=== PATIENT | female | born 1965 ===

== ENCOUNTER 2018-09-10 15:08 | Inpatient (IN) | payer OTHER ==
[2018-09-10 16:33] VITALS: BMI 28.0
[2018-09-10 17:41] LABS: BASO # 0.1 K/uL (0.0-0.2); BASO % 0.6 % (0.0-2.0); EOS % 0.1 % (0.0-4.0); HEMOGLOBIN 12.9 g/dL (12.0-16.0); LYMPH # 0.9 K/uL (1.0-4.3); LYMPH % 7.1 % (20.0-40.0); MEAN CELL VOLUME 90.3 fl (81.0-99.0); MEAN CORPUSCULAR HEMOGLOBIN 30.6 pg (27.0-31.0); MEAN CORPUSCULAR HGB CONC 33.9 g/dL (33.0-37.0); MEAN PLATELET VOLUME 8.5 fl (7.2-11.7); MONO % 7.8 % (0.0-10.0); NEUT # 10.7 K/uL (1.8-7.0); NEUT % 84.4 % (50.0-75.0); NRBC % 0.1 % (0.0-0.0); PLATELET COUNT 175 K/uL (130-400); RBC 4.22 Mil/uL (3.80-5.20); RED CELL DISTRIBUTION WIDTH 13.4 % (11.5-14.5); WHITE BLOOD COUNT 12.7 K/uL (4.8-10.8)
[2018-09-10 17:45] LABS: INR 1.1; PROTHROMBIN TIME 12.2 Seconds (9.8-13.1)
--- NOTE | 2018-09-10 17:45 | ED PDOC ---
HPI: Abdomen Time Seen by Provider: 09/10/18 16:43 Chief Complaint (Nursing): Abdominal Pain Chief Complaint (Provider): Abdominal pain History Per: Patient History/Exam Limitations: no limitations Onset/Duration Of Symptoms: Days Outside of [place] travel?: No Current Symptoms Are (Timing): Still Present Location Of Pain/Discomfort: Epigastric Quality Of Discomfort: "Pain" Additional History Per: Patient Additional Complaint(s): Patient comes in to ER reporting worsening epigastric abdominal pain x 3 days. She has been taking omeprazole with no relief of symptoms. Patient also reports subjective fevers, chills, and bodyaches. She has been taking over the counter cough/cold medication with no relief of symptoms. Patient was evaluated by her PMD who informed her to come to the ER. She denies any vomiting, diarrhea, no other complaints. Past Medical History Reviewed: Historical Data, Nursing Documentation, Vital Signs Vital Signs: Last Vital Signs Temp 99.8 F H 09/10/18 16:33 Pulse 91 H 09/10/18 16:33 Resp 16 09/10/18 16:33 BP 120/72 09/10/18 16:33 Pulse Ox 98 09/10/18 16:33 Primary Care Provider: Mio Hassan - Medical History PMH: HTN Denies: Chronic Kidney Disease - Surgical History Surgical History: No Surg Hx - Family History Family History: States: No Known Family Hx - Home Medications Home Medications: Ambulatory Orders Medication Instructions Recorded Aspirin [Ecotrin] 81 mg PO DAILY 12/14/15 Ibuprofen [Motrin Tab] 800 mg PO Q8 PRN 12/14/15 Lisinopril/Hydrochlorothiazide 1 tab PO DAILY 12/14/15 [Lisinopril-Hctz 20-25 mg Tab] Multivitamin [One Daily] 1 tab PO DAILY 12/14/15 - Allergies Allergies/Adverse Reactions: Allergies Allergy/AdvReac Type Severity Reaction Status Date / Time No Known Allergies Allergy Verified 09/10/18 16:33 Review of Systems ROS Statement: Except As Marked, All Systems Reviewed And Found Negative Constitutional: Positive for: Weakness, Malaise. Negative for: Fever, Chills Gastrointestinal: Positive for: Abdominal Pain. Negative for: Vomiting Physical Exam - Reviewed Nursing Documentation Reviewed: Yes Vital Signs Reviewed: Yes - Physical Exam Appears: Positive for: Non-toxic (appears ) Head Exam: Positive for: ATRAUMATIC, NORMAL INSPECTION, NORMOCEPHALIC Skin: Positive for: Normal Color Eye Exam: Positive for: Normal appearance Neck: Positive for: Supple Cardiovascular/Chest: Positive for: Regular Rate, Rhythm Respiratory: Positive for: Normal Breath Sounds Gastrointestinal/Abdominal: Positive for: Soft, Tenderness (epigastric) Back: Positive for: Normal Inspection Extremity: Positive for: Normal ROM Neurological/Psych: Positive for: Awake, Alert - Laboratory Results Result Diagrams: 09/12/18 07:00 09/12/18 07:00 - ECG O2 Sat by Pulse Oximetry: 98 (RA) Pulse Ox Interpretation: Normal Medical Decision Making Medical Decision Making: Workup for epigastric pain Labs, GI cocktail ordered If labs are abnormal or patient does not have improvement in symptoms, CT AP to be ordered. 1909 On reassessment, patient noted to be doubled over with pain CT A/P ordered w/ IV Contrast Patient does not want narcotics for pain, will give tylenol and additional GI cocktail Patient signed out to Dr. Ocampo pending CT, reassessment, ER dispo. Scribe Attestation: Documented by Yovaan Melgar acting as a scribe for Shanta Altamirano MD. Provider Scribe Attestation: All medical record entries made by the Scribe were at my direction and personally dictated by me. I have reviewed the chart and agree that the record accurately reflects my personal performance of the history, physical exam, medical decision making, and the department course for this patient. I have also personally directed, reviewed, and agree with the discharge instructions and disposition. Disposition - Clinical Impression Clinical Impression: Cholecystitis, Cholelithiasis - Patient ED Disposition Is Patient to be Admitted: Transfer of Care - Disposition Disposition: Transfer of Care Disposition Time: 19:00 Condition: STABLE Patient Signed Over To: Tim Ocampo
[2018-09-10 17:48] LABS: PARTIAL THROMBOPLASTIN TIME 37.1 Seconds (25.6-37.1)
[2018-09-10 17:49] LABS: ALB/GLOB RATIO 1.3 (1.0-2.1); ALBUMIN 4.2 g/dL (3.5-5.0); ALT/SGPT 50 U/L (9-52); AST/SGOT 35 U/L (14-36); BLOOD UREA NITROGEN 9 mg/dl (7-17); CALCIUM 8.8 mg/dL (8.4-10.2); GFR NON-AFRICAN AMERICAN > 60
[2018-09-10 18:03] LABS: VENOUS BLOOD GAS BASE EXCESS 5.3 mmol/L (0.0-2.0); VENOUS BLOOD GAS PCO2 46 mmHg (40-60); VENOUS BLOOD GAS PO2 24 mm/Hg (30-55); VENOUS BLOOD PH 7.43 (7.32-7.43)
[2018-09-10] MEDS ORDERED: Iohexol 300 100 ML IJ ONE (19:47)
[2018-09-10] MEDS ORDERED: Sodium Chloride 0.9% 50 ML IV ONE (19:47)
--- NOTE | 2018-09-10 19:49 | ED PDOC ---
- Laboratory Results Result Diagrams: 09/11/18 05:26 09/11/18 05:26 Lab Results: pO2 24 mm/Hg (30-55) L 09/10/18 17:55 VBG pH 7.43 (7.32-7.43) 09/10/18 17:55 VBG pCO2 46 mmHg (40-60) 09/10/18 17:55 VBG HCO3 27.6 mmol/L 09/10/18 17:55 VBG Total CO2 31.9 mmol/L (22-28) H 09/10/18 17:55 VBG O2 Sat (Calc) 52.3 % (40-65) 09/10/18 17:55 VBG Base Excess 5.3 mmol/L (0.0-2.0) H 09/10/18 17:55 VBG Potassium 3.4 mmol/L (3.6-5.2) L 09/10/18 17:55 Sodium 135.0 mmol/L (132-148) 09/10/18 17:55 Chloride 99.0 mmol/L (98-107) 09/10/18 17:55 Glucose 102 mg/dL (65-105) 09/10/18 17:55 Lactate 1.2 mmol/L (0.7-2.1) 09/10/18 17:55 FiO2 21.0 % 09/10/18 17:55 PT 12.2 Seconds (9.8-13.1) 09/10/18 17:00 INR 1.1 09/10/18 17:00 APTT 37.1 Seconds (25.6-37.1) 09/10/18 17:00 Troponin I < 0.0120 ng/mL (0.00-0.120) 09/10/18 17:00 Total Bilirubin 0.9 mg/dl (0.2-1.3) 09/10/18 17:00 AST 35 U/L (14-36) 09/10/18 17:00 ALT 50 U/L (9-52) 09/10/18 17:00 Alkaline Phosphatase 80 U/L (38-126) 09/10/18 17:00 Total Protein 7.6 G/DL (6.3-8.2) 09/10/18 17:00 Albumin 4.2 g/dL (3.5-5.0) 09/10/18 17:00 Globulin 3.3 gm/dL (2.2-3.9) 09/10/18 17:00 Albumin/Globulin Ratio 1.3 (1.0-2.1) 09/10/18 17:00 - ECG O2 Sat by Pulse Oximetry: 98 (RA) Pulse Ox Interpretation: Normal Medical Decision Making Medical Decision Makin Patient signed out to me by Dr. Altamirano pending CT A/P 2021 Patient with continued pain, morphine 2mg IV ordered 2149 CT Abdomen/Pelvis FINDINGS: LUNG BASES: The lung bases appear clear. No pleural effusions are seen. LIVER: Unremarkable. GALLBLADDER AND BILE DUCTS: There is mucosal wall thickening of the bladder with pericholecystic edema not ed. A few tiny choleliths are seen within the gallbladder lumen. These findings are thought compatible with acute cholecystitis. No biliary ductal dilatation is evident. PANCREAS: Unremarkable. SPLEEN: Unremarkable. ADRENAL GLANDS: Unremarkable. KIDNEYS, URETERS, AND BLADDER: The kidneys appear within normal limits. There is no hydronephrosis or hydroureter. No urinary calculi are seen. The urinary bladder appeared normal in size and configuration. STOMACH AND BOWEL: Unremarkable appearance of the stomach. No evidence of bowel obstruction. There is mild mucosal wall thickening and fluid in the lumen seen involving all small bowel segments consistent with enteritis. Infectious or inflammatory etiologies are thought most likely. No evidence suggesting colitis. APPENDIX: No evidence of acute appendicitis on CT examination. PERITONEUM: No free fluid. No free air. LYMPH NODES: No lymphadenopathy is evident. REPRODUCTIVE: Unremarkable as visualized. VASCULATURE: No evidence of abdominal aortic aneurysm. There is minor atherosclerotic vascular plaquing noted. BONES: No aggressive appearing osseous lesion. No acute osseous pathology evident. There is evidence of moderate degenerative disc disease at L4-5 and L5-S1. IMPRESSION: 1. Cholelithiasis with associated acute cholecystitis. 2. Enteritis. IV Zosyn ordered Case referred to surgery service; patient evaluated by Dr Malcolm who d/w Dr Tesfaye. Case also d/w Dr Heard who accepted under his svc DX Acute Cholecystitis, Cholelithiasis Scribe Attestation: Documented by Yovana Melgar acting as a scribe for Tim Ocampo MD. Provider Scribe Attestation: All medical record entries made by the Scribe were at my direction and personally dictated by me. I have reviewed the chart and agree that the record accurately reflects my personal performance of the history, physical exam, medical decision making, and the department course for this patient. I have also personally directed, reviewed, and agree with the discharge instructions and disposition. Disposition - Clinical Impression Clinical Impression: Cholecystitis, Cholelithiasis - POA Present On Arrival: None - Disposition Disposition: Routine/Home Disposition Time: 22:00 Condition: STABLE
[2018-09-10 20:32] LABS: BANDS 3 % (0-2); LYMPHOCYTE 13 % (20-50); MONOCYTE 8 % (0-10); NEUTROPHIL 76 % (42-75); TOTAL CELLS COUNTED 100
[2018-09-10 20:33] LABS: ANISOCYTOSIS SLIGHT; HYPOCHROMIC SLIGHT; PLATELET ESTIMATE NORMAL (NORMAL)
[2018-09-10] MEDS ORDERED: Sodium Chloride 0.9% 1,000 ML IV STA (20:45)
[2018-09-10] MEDS ORDERED: Piperacillin/Tazobact 3.375 GM in Sodium Chloride 0.9% 100 ML IV STA (21:54)
--- NOTE | 2018-09-10 22:36 | CP.PCM.CON ---
History of Present Illness - History of Present Illness History of Present Illness: Surgery Consult Note. Dr. Tesfaye service 52yo F with PMHx of HTN and Asthma who comes into the ED with epigastric, RUQ abdominal pain for 3 days. States that the pain is located in the RUQ, does not radiate, described as sharp and severe. Nothing improves the pain. Last time patient ate was yesterday at breakfast. Reports nausea, no emesis. Denies any fevers or chills. No urinary complaints. Denies CP/SOB. CT A/P consistent with c holelithiasis, perichole fluid and distended GB consistent with cholecystitis. PMHx: HTN, Asthma PSHx: Left parotid mass removal Family Hx: Denies Social Hx: Denies tobacco use, Denies ETOH use, Denies illicit drug use NKDA Review of Systems - Review of Systems All systems: reviewed and no additional remarkable complaints except - Constitutional Constitutional: absent: Chills, Fever Past Patient History - Past Medical History & Family History Past Medical History?: Yes Past Family History: Reviewed and not pertinent - Past Social History Smoking Status: Never Smoked Alcohol: None Drugs: Denies - CARDIAC Hx Hypertension: Yes - PULMONARY Hx Respiratory Disorders: No - NEUROLOGICAL Hx Neurological Disorder: No - HEENT Hx HEENT Problems: No - RENAL Hx Chronic Kidney Disease: No - ENDOCRINE/METABOLIC Hx Endocrine Disorders: No - HEMATOLOGICAL/ONCOLOGICAL Hx Blood Disorders: No - INTEGUMENTARY Hx Dermatological Problems: No - MUSCULOSKELETAL/RHEUMATOLOGICAL Hx Musculoskeletal Disorders: No - GASTROINTESTINAL Hx Gastrointestinal Disorders: Yes Hx Gastroesophageal Reflux: Yes - GENITOURINARY/GYNECOLOGICAL Hx Genitourinary Disorders: No - PSYCHIATRIC Hx Emotional Abuse: No Hx Physical Abuse: No Hx Substance Use: No - SURGICAL HISTORY Hx Surgeries: Yes Hx Tubal Ligation: Yes (20YRS AGO) Other/Comment: PAROTID LEFT OCTOBER 2015 - ANESTHESIA Hx Anesthesia: Yes Hx Anesthesia Reactions: No Hx Malignant Hyperthermia: No Meds Allergies/Adverse Reactions: Allergies Allergy/AdvReac Type Severity Reaction Status Date / Time No Known Allergies Allergy Verified 09/10/18 16:33 - Medications Medications: Current Medications Piperacillin Sod/Tazobactam (Sod 3.375 gm/ Sodium Chloride) 100 mls @ 100 mls/hr IV STAT STA; Protocol Stop: 09/10/18 22:53 Physical Exam - Constitutional Appears: Non-toxic, No Acute Distress - Head Exam Head Exam: ATRAUMATIC, NORMAL INSPECTION, NORMOCEPHALIC - Eye Exam Eye Exam: EOMI, Normal appearance. absent: Scleral icterus - ENT Exam ENT Exam: Mucous Membranes Moist - Respiratory Exam Respiratory Exam: NORMAL BREATHING PATTERN. absent: Accessory Muscle Use, Respiratory Distress - Cardiovascular Exam Cardiovascular Exam: RRR. absent: JVD - GI/Abdominal Exam GI & Abdominal Exam: Soft. absent: Distended, Firm, Guarding, Rebound, Rigid Additional comments: RUQ tenderness to palpation. Negative Fischer's sign - Extremities Exam Extremities exam: Positive for: normal inspection. Negative for: calf tenderness - Neurological Exam Neurological exam: Alert, Oriented x3 - Psychiatric Exam Psychiatric exam: Normal Affect, Normal Mood - Skin Skin Exam: Dry, Intact, Normal Color, Warm Results - Vital Signs Recent Vital Signs: Last Vital Signs Temp 99.0 F 09/10/18 20:15 Pulse 77 09/10/18 21:24 Resp 20 09/10/18 21:24 BP 120/66 09/10/18 21:24 Pulse Ox 98 09/10/18 21:54 - Labs Result Diagrams: 09/11/18 05:26 09/11/18 05:26 Labs: Laboratory Results - last 24 hr 09/10/18 09/10/18 09/10/18 17:00 17:00 17:00 WBC 12.7 H D RBC 4.22 Hgb 12.9 Hct 38.1 MCV 90.3 MCH 30.6 MCHC 33.9 RDW 13.4 Plt Count 175 MPV 8.5 Neut % (Auto) 84.4 H Lymph % (Auto) 7.1 L [place] % (Auto) 7.8 Eos % (Auto) 0.1 Baso % (Auto) 0.6 Neut # (Auto) 10.7 H Lymph # (Auto) 0.9 L [place] # (Auto) 1.0 H Eos # (Auto) 0.0 Baso # (Auto) 0.1 Neutrophils % (Manual) 76 H Band Neutrophils % 3 H Lymphocytes % (Manual) 13 L Monocytes % (Manual) 8 Platelet Estimate Normal Hypochromasia (manual) Slight Anisocytosis (manual) Slight PT 12.2 INR 1.1 APTT 37.1 pO2 VBG pH VBG pCO2 VBG HCO3 VBG Total CO2 VBG O2 Sat (Calc) VBG Base Excess VBG Potassium Glucose Lactate FiO2 Sodium 135 Potassium 3.4 L Chloride 97 L Carbon Dioxide 28 Anion Gap 13 BUN 9 Creatinine 0.6 L Est GFR ( Amer) > 60 Est GFR (Non-Af Amer) > 60 Random Glucose 103 Calcium 8.8 Total Bilirubin 0.9 AST 35 ALT 50 Alkaline Phosphatase 80 Troponin I < 0.0120 Total Protein 7.6 Albumin 4.2 Globulin 3.3 Albumin/Globulin Ratio 1.3 Venous Blood Potassium 09/10/18 17:55 WBC RBC Hgb Hct MCV MCH MCHC RDW Plt Count MPV Neut % (Auto) Lymph % (Auto) [place] % (Auto) Eos % (Auto) Baso % (Auto) Neut # (Auto) Lymph # (Auto) [place] # (Auto) Eos # (Auto) Baso # (Auto) Neutrophils % (Manual) Band Neutrophils % Lymphocytes % (Manual) Monocytes % (Manual) Platelet Estimate Hypochromasia (manual) Anisocytosis (manual) PT INR APTT pO2 24 L VBG pH 7.43 VBG pCO2 46 VBG HCO3 27.6 VBG Total CO2 31.9 H VBG O2 Sat (Calc) 52.3 VBG Base Excess 5.3 H VBG Potassium 3.4 L Glucose 102 Lactate 1.2 FiO2 21.0 Sodium 135.0 Potassium Chloride 99.0 Carbon Dioxide Anion Gap BUN Creatinine Est GFR ( Amer) Est GFR (Non-Af Amer) Random Glucose Calcium Total Bilirubin AST ALT Alkaline Phosphatase Troponin I Total Protein Albumin Globulin Albumin/Globulin Ratio Venous Blood Potassium 3.4 L Assessment & Plan - Assessment and Plan (Free Text) Assessment: 52yo F with cholecystitis Plan: - NPO except meds - IV Abx - IVF - antiemetics as needed - pain control - Abd US - Will plan for OR today Further recs as per Dr. Brien Malcolm PGY2 surgery
[2018-09-10] MEDS ORDERED: Piperacillin/Tazobact 3.375 gm Inj IVPB ONE (22:51)
[2018-09-11] MEDS: HYDROmorphone 0.5 mg/0.5 ml ISec IVP PRN ×3 (00:30→08:13)
[2018-09-11] MEDS: Piperacillin/Tazobact 3.375 GM in Sodium Chloride 0.9% 100 ML IVPB SCH ×4 (04:14→19:02)
[2018-09-11 05:41] LABS: BASO % 0.2 % (0.0-2.0); HEMOGLOBIN 12.5 g/dL (12.0-16.0); LYMPH # 0.6 K/uL (1.0-4.3); LYMPH % 3.5 % (20.0-40.0); MEAN CELL VOLUME 91.1 fl (81.0-99.0); MEAN CORPUSCULAR HEMOGLOBIN 30.2 pg (27.0-31.0); MEAN CORPUSCULAR HGB CONC 33.1 g/dL (33.0-37.0); MEAN PLATELET VOLUME 8.2 fl (7.2-11.7); MONO # 1.3 K/uL (0.0-0.8); MONO % 7.2 % (0.0-10.0); NEUT # 16.2 K/uL (1.8-7.0); NEUT % 89.1 % (50.0-75.0); RBC 4.14 Mil/uL (3.80-5.20); RED CELL DISTRIBUTION WIDTH 13.7 % (11.5-14.5); WHITE BLOOD COUNT 18.2 K/uL (4.8-10.8)
[2018-09-11 06:10] LABS: ALB/GLOB RATIO 1.1 (1.0-2.1); ALBUMIN 3.7 g/dL (3.5-5.0); ALT/SGPT 53 U/L (9-52); AST/SGOT 47 U/L (14-36); BLOOD UREA NITROGEN 9 mg/dl (7-17); CALCIUM 8.5 mg/dL (8.4-10.2); GFR NON-AFRICAN AMERICAN > 60
--- NOTE | 2018-09-11 09:10 | CP.PCM.HP ---
History of Present Illness - History of Present Illness History of Present Illness: 52 YR OLD FEMALE ADMITTED VIA THE ER BECAUSE OF RUQ AND MID-EPIGASTRIC PAIN WITH BLOATING,FEVER AND CHILLS X SEVERAL DAYS.WORKUP IN THE ER WAS REMARKABLE FOR CHOLECYSTITIS AND CHOLELITHIASIS.SHE CONTINUES TO HAVE ABDOMINAL PAINS SINCE ADMISSION. SHE HAS A HISTORY OF HYPERTENSION CONTROLLED ON MEDS FAMILY HX-UNREMARKABLE SOCIAL [id number]/ETOH/DRUGS---NURSE Present on Admission - Present on Admission Any Indicators Present on Admission: No Past Patient History - Past Medical History & Family History Past Medical History?: Yes - Past Social History Smoking Status: Never Smoked - CARDIAC Hx Cardiac Disorders: No Hx Angina: No Hx Atrial Fibrillation: No Hx Cardia Arrhythmia: No Hx Circulatory Problems: No Hx Congestive Heart Failure: No Hx Heart Attack: No Hx Heart Murmur: No Hx Heart Transplant: No Hx Hypercholesterolemia: No Hx Hypertension: Yes Hx Hypotension: No Hx Internal Defibrillator: No Hx Mitral Valve Prolapse: No Hx Pacemaker: No Hx Peripheral Edema: No Hx Peripheral Vascular Disease: No - PULMONARY Hx Respiratory Disorders: No Hx Asthma: Yes Hx Bronchitis: No Hx Chronic Obstructive Pulmonary Disease (COPD): No Hx Emphysema: No Hx Lung Cancer: No Hx Pneumonia: No Hx Pulmonary Edema: No Hx Pulmonary Embolism: No Hx Respiratory Aspiration: No Hx Respiratory Tract Infection: No Hx Sleep Apnea: No Hx Tuberculosis: No - NEUROLOGICAL Hx Neurological Disorder: No Hx Alzheimer's Disease: No HX Cerebrovascular Accident: No Hx Dementia: No Hx Dizziness: No Hx Meningitis: No Hx Migraine: No Hx Multiple Sclerosis: No Hx Paralysis: No Hx Parkinson's Disease: No Hx Seizures: No Hx Syncope: No Hx Transient Ischemic Attacks (TIA): No Hx Vertigo: No - HEENT Hx HEENT Problems: No - RENAL Hx Chronic Kidney Disease: No - ENDOCRINE/METABOLIC Hx Endocrine Disorders: No - HEMATOLOGICAL/ONCOLOGICAL Hx Blood Disorders: No - INTEGUMENTARY Hx Dermatological Problems: No - MUSCULOSKELETAL/RHEUMATOLOGICAL Hx Musculoskeletal Disorders: Yes Hx Arthritis: No Hx Back Pain: No Hx Degenerative Joint Disease: No Hx Falls: No Hx Fractures: No Hx Gout: No Hx Herniated Disk: No Hx Myasthenia Gravis: No Hx Osteoarthritis: No Hx Osteomyelitis: No Hx Osteoporosis: No Hx Rhabdomyolysis: No Hx Rheumatoid Arthritis: No Hx Spinal Stenosis: Yes Hx Unsteady Gait: No - GASTROINTESTINAL Hx Gastrointestinal Disorders: Yes Hx Bowel Surgery: No Hx Clostridium Difficile: No Hx Colitis: No Hx Colostomy: No Hx Constipation: No Hx Crohn's Disease: No Hx Diarrhea: No Hx Diverticulitis: No Hx Esophageal Varices: No Hx Fatty Liver Disease: No Hx Gall Bladder Disease: No Hx Gastritis: No Hx Gastroesophageal Reflux: Yes Hx Hemorrhoids: No Hx Ileostomy: No Hx Irritable Bowel: No Hx Liver Failure: No Hx Nausea: No Hx Pancreatitis: No HX Swallowing Problems: No Hx Ulcer: No Hx Vomiting: No - GENITOURINARY/GYNECOLOGICAL Hx Genitourinary Disorders: No - PSYCHIATRIC Hx Psychophysiologic Disorder: No Hx Emotional Abuse: No Hx Physical Abuse: No Hx Substance Use: No - SURGICAL HISTORY Hx Surgeries: Yes Hx Tubal Ligation: Yes (20YRS AGO) Other/Comment: PAROTID LEFT OCTOBER 2015 - ANESTHESIA Hx Anesthesia: Yes Hx Anesthesia Reactions: No Hx Malignant Hyperthermia: No Meds Allergies/Adverse Reactions: Allergies Allergy/AdvReac Type Severity Reaction Status Date / Time No Known Allergies Allergy Verified 09/10/18 16:33 Physical Exam - Constitutional Appears: Well, In Acute Distress - Head Exam Head Exam: ATRAUMATIC, NORMAL INSPECTION, NORMOCEPHALIC - Eye Exam Eye Exam: EOMI, Normal appearance, PERRL Pupil Exam: NORMAL ACCOMODATION, PERRL - ENT Exam ENT Exam: Mucous Membranes Moist, Normal Exam - Neck Exam Neck exam: Positive for: Normal Inspection - Respiratory Exam Respiratory Exam: Clear to Auscultation Bilateral, NORMAL BREATHING PATTERN - Cardiovascular Exam Cardiovascular Exam: REGULAR RHYTHM - GI/Abdominal Exam GI & Abdominal Exam: Normal Bowel Sounds, Soft, Tenderness Additional comments: RUQ AND MIDEPIGASTRIC TENDERNESS - Rectal Exam Rectal Exam: NORMAL INSPECTION - Extremities Exam Extremities exam: Positive for: normal inspection - Back Exam Back exam: NORMAL INSPECTION - Neurological Exam Neurological exam: Alert, CN II-XII Intact, Normal Gait, Oriented x3, Reflexes Normal - Psychiatric Exam Psychiatric exam: Normal Affect, Normal Mood - Skin Skin Exam: Dry, Intact, Normal Color, Warm Results - Vital Signs Recent Vital Signs: Last Vital Signs Temp 100.0 F H 09/11/18 05:31 Pulse 71 09/11/18 05:31 Resp 20 09/11/18 05:31 BP 131/76 09/11/18 05:31 Pulse Ox 95 09/11/18 05:31 - Labs Result Diagrams: 05/08/19 05:26 09/11/18 05:26 Labs: Laboratory Results - last 24 hr 09/10/18 09/10/18 09/10/18 17:00 17:00 17:00 WBC 12.7 H D RBC 4.22 Hgb 12.9 Hct 38.1 MCV 90.3 MCH 30.6 MCHC 33.9 RDW 13.4 Plt Count 175 MPV 8.5 Neut % (Auto) 84.4 H Lymph % (Auto) 7.1 L [place] % (Auto) 7.8 Eos % (Auto) 0.1 Baso % (Auto) 0.6 Neut # (Auto) 10.7 H Lymph # (Auto) 0.9 L [place] # (Auto) 1.0 H Eos # (Auto) 0.0 Baso # (Auto) 0.1 Neutrophils % (Manual) 76 H Band Neutrophils % 3 H Lymphocytes % (Manual) 13 L Monocytes % (Manual) 8 Platelet Estimate Normal Hypochromasia (manual) Slight Anisocytosis (manual) Slight PT 12.2 INR 1.1 APTT 37.1 pO2 VBG pH VBG pCO2 VBG HCO3 VBG Total CO2 VBG O2 Sat (Calc) VBG Base Excess VBG Potassium Glucose Lactate FiO2 Sodium 135 Potassium 3.4 L Chloride 97 L Carbon Dioxide 28 Anion Gap 13 BUN 9 Creatinine 0.6 L Est GFR ( Amer) > 60 Est GFR (Non-Af Amer) > 60 Random Glucose 103 Lactic Acid Calcium 8.8 Phosphorus Magnesium Total Bilirubin 0.9 AST 35 ALT 50 Alkaline Phosphatase 80 Troponin I < 0.0120 Total Protein 7.6 Albumin 4.2 Globulin 3.3 Albumin/Globulin Ratio 1.3 Lipase Venous Blood Potassium Blood Type Blood Type Confirm Antibody Screen BBK History Checked 09/10/18 09/10/18 09/10/18 17:20 17:55 22:50 WBC RBC Hgb Hct MCV MCH MCHC RDW Plt Count MPV Neut % (Auto) Lymph % (Auto) [place] % (Auto) Eos % (Auto) Baso % (Auto) Neut # (Auto) Lymph # (Auto) [place] # (Auto) Eos # (Auto) Baso # (Auto) Neutrophils % (Manual) Band Neutrophils % Lymphocytes % (Manual) Monocytes % (Manual) Platelet Estimate Hypochromasia (manual) Anisocytosis (manual) PT INR APTT pO2 24 L VBG pH 7.43 VBG pCO2 46 VBG HCO3 27.6 VBG Total CO2 31.9 H VBG O2 Sat (Calc) 52.3 VBG Base Excess 5.3 H VBG Potassium 3.4 L Glucose 102 Lactate 1.2 FiO2 21.0 Sodium 135.0 Potassium Chloride 99.0 Carbon Dioxide Anion Gap BUN Creatinine Est GFR ( Amer) Est GFR (Non-Af Amer) Random Glucose Lactic Acid 1.1 Calcium Phosphorus Magnesium Total Bilirubin AST ALT Alkaline Phosphatase Troponin I Total Protein Albumin Globulin Albumin/Globulin Ratio Lipase Venous Blood Potassium 3.4 L Blood Type Blood Type Confirm A POSITIVE Antibody Screen BBK History Checked 09/10/18 09/11/18 09/11/18 22:50 05:26 05:26 WBC 18.2 H RBC 4.14 Hgb 12.5 Hct 37.7 MCV 91.1 MCH 30.2 MCHC 33.1 RDW 13.7 Plt Count 143 MPV 8.2 Neut % (Auto) 89.1 H Lymph % (Auto) 3.5 L [place] % (Auto) 7.2 Eos % (Auto) 0.0 Baso % (Auto) 0.2 Neut # (Auto) 16.2 H Lymph # (Auto) 0.6 L [place] # (Auto) 1.3 H Eos # (Auto) 0.0 Baso # (Auto) 0.0 Neutrophils % (Manual) Band Neutrophils % Lymphocytes % (Manual) Monocytes % (Manual) Platelet Estimate Hypochromasia (manual) Anisocytosis (manual) PT INR APTT pO2 VBG pH VBG pCO2 VBG HCO3 VBG Total CO2 VBG O2 Sat (Calc) VBG Base Excess VBG Potassium Glucose Lactate FiO2 Sodium 137 Potassium 3.6 Chloride 99 Carbon Dioxide 29 Anion Gap 13 BUN 9 Creatinine 0.7 Est GFR ( Amer) > 60 Est GFR (Non-Af Amer) > 60 Random Glucose 122 H Lactic Acid Calcium 8.5 Phosphorus 3.5 Magnesium 2.0 Total Bilirubin 1.3 AST 47 H D ALT 53 H Alkaline Phosphatase 82 Troponin I Total Protein 6.9 Albumin 3.7 Globulin 3.2 Albumin/Globulin Ratio 1.1 Lipase 56 Venous Blood Potassium Blood Type Blood Type Confirm Antibody Screen BBK History Checked 09/11/18 05:26 WBC RBC Hgb Hct MCV MCH MCHC RDW Plt Count MPV Neut % (Auto) Lymph % (Auto) [place] % (Auto) Eos % (Auto) Baso % (Auto) Neut # (Auto) Lymph # (Auto) [place] # (Auto) Eos # (Auto) Baso # (Auto) Neutrophils % (Manual) Band Neutrophils % Lymphocytes % (Manual) Monocytes % (Manual) Platelet Estimate Hypochromasia (manual) Anisocytosis (manual) PT INR APTT pO2 VBG pH VBG pCO2 VBG HCO3 VBG Total CO2 VBG O2 Sat (Calc) VBG Base Excess VBG Potassium Glucose Lactate FiO2 Sodium Potassium Chloride Carbon Dioxide Anion Gap BUN Creatinine Est GFR ( Amer) Est GFR (Non-Af Amer) Random Glucose Lactic Acid Calcium Phosphorus Magnesium Total Bilirubin AST ALT Alkaline Phosphatase Troponin I Total Protein Albumin Globulin Albumin/Globulin Ratio Lipase Venous Blood Potassium Blood Type A POSITIVE Blood Type Confirm Antibody Screen Negative BBK History Checked No verified bt Assessment & Plan - Assessment and Plan (Free Text) Assessment: ACUTE CHOLECYSTITIS WITH CHOLELITHIASIS HYPERTENSION--CONTROLLED Plan: MEDICALLY CLEARED FOR CHOLECYSTECTOMY - Date & Time Date: 09/11/18 Time: 09:16
[2018-09-11] MEDS ORDERED: Propofol 10 mg/ml Inj (20 ML) ONE (10:26)
[2018-09-11] MEDS ORDERED: Lidocaine 4% (Laryng-O-Jet) Kit MM ONE (10:26)
[2018-09-11] MEDS ORDERED: Succinylcholine Chloride 20 mg/ml Syr (5 ml) IV ONE (10:26)
[2018-09-11] MEDS ORDERED: Rocuronium 10 mg/ml (5 ml) ONE (10:26)
[2018-09-11] MEDS ORDERED: Bupivacaine 0.5% Inj(30mL) ONE (10:32)
--- NOTE | 2018-09-11 10:46 | RAD ---
Date of service: 09/11/2018 PROCEDURE: CHEST RADIOGRAPH, 1 VIEW HISTORY: PRE-OP COMPARISON: 08/13/2017 FINDINGS: LUNGS: Clear. Lung volumes low-normal less than before. PLEURA: No pneumothorax or pleural fluid seen. CARDIOVASCULAR: No aortic atherosclerotic calcification present. Normal. OSSEOUS STRUCTURES: Similar dextroscoliosis. VISUALIZED UPPER ABDOMEN: Normal. OTHER FINDINGS: None. IMPRESSION: No active disease. Other findings as above.
--- NOTE | 2018-09-11 11:08 | CARD ---
APPROVED REPORT Date of service: 09/11/2018 EKG Measurement Heart [id number] <Conclusion> Normal sinus rhythm Normal ECG
[2018-09-11] MEDS ORDERED: Bupivacaine 0.25%-Epinephrine 1:200,000 (30 ml) Inj ONE (11:34)
[2018-09-11] MEDS ORDERED: Lactated Ringer's 1,000 ML IV ONE (11:35)
[2018-09-11] MEDS ORDERED: Midazolam 2 MG/2 ML VIAL ONE (11:37)
--- NOTE | 2018-09-11 11:42 | CT ---
Date of service: 09/10/2018 PROCEDURE: CT Abdomen and Pelvis with contrast HISTORY: abdominal pain COMPARISON: 09/10/2018. TECHNIQUE: Intravenous contrast dose: Radiation dose: Total exam DLP = <inf_radiation_dlp> mGy-cm. This CT exam was performed using one or more of the following dose reduction techniques: Automated exposure control, adjustment of the mA and/or kV according to patient size, and/or use of iterative reconstruction technique. FINDINGS: LOWER THORAX: Unremarkable. LIVER: Unremarkable. No gross lesion or ductal dilatation. GALLBLADDER AND BILE DUCTS: Distended gallbladder containing debris stones/sludge. Gallbladder wall thickening, pericholecystic fluid. Presumptive findings for acute cholecystitis. PANCREAS: Unremarkable. No gross lesion or ductal dilatation. SPLEEN: Unremarkable. ADRENALS: Unremarkable. No mass. KIDNEYS AND URETERS: Unremarkable. No hydronephrosis. No solid mass. VASCULATURE: Atherosclerotic calcification and mural plaque present. Findings are seen throughout the aorta which is non aneurysmal. BOWEL: Unremarkable. No obstruction. No gross mural thickening. APPENDIX: Normal appendix. PERITONEUM: CT manifestations of acute cholecystitis. Additional benign and/or incidental findings described above. LYMPH NODES: Unremarkable. No enlarged lymph nodes. BLADDER: Unremarkable. REPRODUCTIVE: Unremarkable. BONES: No acute fracture. Degenerative changes limited to the lower lumbar and lumbosacral junction regions. OTHER FINDINGS: None. IMPRESSION: Unremarkable contrast enhanced CT of the abdomen and pelvis. Concordant results (preliminary interpretation) provided by [employer]. Procedure Completed: 20:07. Preliminary Report: Interpreted and electronically signed: 20:54. Final Interpretation: 11:33. September 11, 2018.
[2018-09-11] MEDS ORDERED: ePHEDrine 50 mg/ml Inj ONE (11:54)
[2018-09-11] MEDS ORDERED: Sodium Chloride 0.9% 10 ML IV ONE (11:54)
[2018-09-11] MEDS ORDERED: Dexamethasone 4 mg/1 ml ONE (11:56)
[2018-09-11 12:44] LABS: URINE CLARITY Hazy (Clear); URINE COLOR YELLOW (YELLOW); URINE GLUCOSE (UA) 100 mg/dL (NEGATIVE)
[2018-09-11 12:45] LABS: URINE BILIRUBIN SMALL (NEGATIVE); URINE BLOOD TRACE-INTACT (NEGATIVE)
[2018-09-11 12:46] LABS: PH,URINE 6.5 (5.0-8.0); SQUAMOUS EPITHIAL 70 /hpf (0-5); URINE LEUKOCYTE ESTERASE NEGATIVE Leu/uL (Negative); URINE PROTEIN >=300 mg/dL (NEGATIVE)
[2018-09-11 12:47] LABS: URINE BACTERIA MANY (<OCC)
--- NOTE | 2018-09-11 12:52 | US ---
Date of service: 09/10/2018 HISTORY: cholelithiasis, r/o cholecystitis COMPARISON: CT of the abdomen pelvis with IV contrast performed 09/10/18 TECHNIQUE: Sonographic evaluation of the right upper quadrant of the abdomen. FINDINGS: LIVER: Measures 16.4 cm in length. Echogenic liver may be seen in setting of hepatic parenchymal disease or fatty infiltration. No focal hepatic mass identified. The main portal vein appears patent with normal directional flow. No intrahepatic bile duct dilatation. GALLBLADDER: Echogenic appearance of the gallbladder lumen presumed secondary to cholelithiasis and or sludge. Gallbladder wall thickening/pericholecystic edema. 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 COMMON BILE DUCT: Measures 5 mm. PANCREAS: Not well-visualized. RIGHT KIDNEY: Measures approximately 10.4 x 5.6 x 4.9 cm. No obstructing calculus or hydronephrosis identified. AORTA: Limited visualization appears grossly unremarkable. IVC: Limited visualization appears grossly unremarkable. OTHER FINDINGS: None . IMPRESSION: Echogenic appearance of the gallbladder lumen presumed secondary to cholelithiasis and/or sludge. Gallbladder wall thickening/pericholecystic edema. 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 Correlate clinically for acute cholecystitis. Echogenic liver may be seen in setting of hepatic parenchymal disease or fatty infiltration. Preliminary impression was provided by [employer].
[2018-09-11] MEDS ORDERED: Neostigmine 1:1000 (1 mg/ml) Inj ONE (13:06)
[2018-09-11] MEDS ORDERED: Bupivacaine 0.5% 50 ML IJ ONE ×2 (13:20)
[2018-09-11] MEDS ORDERED: Dexamethasone 4 mg/1 ml IVP PRN (13:34)
[2018-09-11] MEDS ORDERED: HYDROmorphone 0.5 mg/0.5 ml ISec IVP PRN (13:34)
--- NOTE | 2018-09-11 18:35 | PCM.SURG1 ---
Surgeon's Initial Post Op Note - Surgeon's Notes Surgeon: Dr. Lexa Tesfaye Behavioral Science Chair: Adelina Manriquez, PGY-2 Type of Anesthesia: General Endo Anesthesia Administered By: Dr. Rice Pre-Operative Diagnosis: Acute cholecystitis Operative Findings: Gangrenous gallbladder Post-Operative Diagnosis: Acute necrotizing cholecystitis and cholelithiasis Operation Performed: Laparoscopic cholecystectomy Specimen/Specimens Removed: gallbladder and gallstones Estimated Blood Loss: EBL {In ML}: 30 Blood Products Given: N/A Drains Used: No Drains Post-Op Condition: Good Date of Surgery/Procedure: 09/11/18 Time of Surgery/Procedure: 12:30
[2018-09-11] MEDS ORDERED: oxyCODONE 5 mg Immediate Release Tab PO PRN (18:36)
[2018-09-11] MEDS: Lactated Ringer's 1,000 ML IV SCH ×2 (18:59)
[2018-09-12] MEDS: Piperacillin/Tazobact 3.375 GM in Sodium Chloride 0.9% 100 ML IVPB SCH ×2 (00:55→06:16)
[2018-09-12] MEDS: Lactated Ringer's 1,000 ML IV SCH (06:17)
--- NOTE | 2018-09-12 06:49 | OP ---
PROCEDURE DATE: 09/11/2018 SURGEON: Margaux Tesfaye MD SOFTWARE SYSTEMS ENGINEER: Adelina Manriquez DO, PGY-2 ANESTHESIOLOGIST: Bashir Rice MD ANESTHESIA: General endotracheal. PREOPERATIVE DIAGNOSIS: Acute cholecystitis. POSTOPERATIVE DIAGNOSIS: Acute gangrenous necrotizing cholecystitis and cholelithiasis. FINDINGS: Acutely inflamed necrotic gallbladder with gallstones. SPECIMEN: Gallbladder and gallstones. ESTIMATED BLOOD LOSS: 30 mL. DRAINS: None. COMPLICATIONS: None. INDICATIONS: Thony White is a 52-year-old female who came in with right upper quadrant abdominal pain, was evaluated and found to have cholelithiasis with findings consistent with acute cholecystitis. It was deemed the patient would benefit from laparoscopic cholecystectomy. The patient was consented for the same. All risks and benefits were discussed with the patient prior to surgical intervention, and all questions were answered. DESCRIPTION OF PROCEDURE:The patient was taken to the operating room, and laid supine upon the operating table. General endotracheal anesthesia was induced. The patient was prepped and draped in the usual sterile fashion. A time-out was performed to identify the patient and procedure. An infraumbilical incision was made, and a Veress needle was used to introduce pneumoperitoneum to 15 mmHg. An #11 mm trocar was introduced without incident. A laparoscope was introduced into the intra-abdominal cavity which was inspected without any abnormalities noted. The remaining ports were introduced, An 11 mm trocar was placed in the epigastrium and two 5 mm trocars were placed in the right costal margin area. The gallbladder was decompressed with approximately 30 mL of bilious fluid drained.The fundus of the gallbladder was grasped and retracted over the liver bed cephalad. The gallbladder was noted to have adhesions to the inferior bowel which were bluntly dissected down exposing the presumed infundibulum of the gallbladder. The infundibulum which was then grasped and pulled laterally and caudad exposing the presumed cystic triangle. Blunt dissection was then carried out to gently expose the structures. The cystic duct identified, circumferentially dissected and then triply clipped and divided. The remaining structures were carefully dissected and the cystic artery was identified and then circumferentially dissected and triply clipped and divided. The gallbladder was noted to be frankly necrotic with friable tissue at the posterior aspect with some purulence noted upon dissection, due to the friability of the tissues, it was difficult to remove the gallbladder without tearing through the tissues. Some gallstones were encountered during the dissection off the liver bed, these were subsequently removed from the abdominal cavity. The remaining gallbladder was dissected off the liver bed without incident and with minimal bleeding. Hemostasis was achieved with electrocautery. The intraabdominal cavity was then thoroughly irrigated and irrigants were removed via suctioning. The liver bed was rechecked for hemostasis. No bleeding was noted. The gallbladder was placed in an EndoCatch bag and removed from the intraabdominal cavity. The intraabdominal cavity was then reinspected for any abnormalities, none were noted. All trocars and pneumoperitoneum was removed. The abdomen was allowed to collapse. The infraumbilical fascial incision was closed with an 0 Vicryl on a UR-6 needle in a [id number] configuration with good approximation. All skin incisions were closed using 4-0 Monocryl in either an interrupted or running subcuticular fashion. Local anesthesia was infiltrated. Surgical glue was then applied. All sponges, sutures, and instrument counts were declared to be correct at the end of the procedure. The patient was then extubated and taken to the postoperative anesthesia care unit in stable condition. Adelina Manriquez DO Margaux Tesfaye MD MARCIO
[2018-09-12 07:26] LABS: BASO % 0.1 % (0.0-2.0); HEMOGLOBIN 11.4 g/dL (12.0-16.0); LYMPH # 0.7 K/uL (1.0-4.3); LYMPH % 5.8 % (20.0-40.0); MEAN CELL VOLUME 92.3 fl (81.0-99.0); MEAN CORPUSCULAR HGB CONC 32.5 g/dL (33.0-37.0); MEAN PLATELET VOLUME 8.2 fl (7.2-11.7); MONO # 0.7 K/uL (0.0-0.8); MONO % 5.9 % (0.0-10.0); NEUT # 9.9 K/uL (1.8-7.0); NEUT % 88.2 % (50.0-75.0); RBC 3.81 Mil/uL (3.80-5.20); RED CELL DISTRIBUTION WIDTH 13.8 % (11.5-14.5); WHITE BLOOD COUNT 11.2 K/uL (4.8-10.8)
[2018-09-12 07:51] LABS: ALB/GLOB RATIO 1.1 (1.0-2.1); ALBUMIN 3.6 g/dL (3.5-5.0); ALT/SGPT 96 U/L (9-52); AST/SGOT 114 U/L (14-36); BLOOD UREA NITROGEN 13 mg/dl (7-17); CALCIUM 8.3 mg/dL (8.4-10.2); GFR NON-AFRICAN AMERICAN > 60
--- NOTE | 2018-09-12 08:22 | CP.PCM.PN ---
Subjective - Date & Time of Evaluation Date of Evaluation: 09/12/18 Time of Evaluation: : - Subjective Subjective: General surgery progress note for Dr. Kentrell Manriquez, PGY-2 Pt seen/examined at bedside Pt reports pain is very well controlled overnight. Feeling much improved. Voiding. Tolerating diet. Denies N & V, F & C, SOB. Objective - Vital Signs/Intake and Output Vital Signs (last 24 hours): Temp Pulse Resp BP Pulse Ox 98 F 80 20 129/69 98 09/11/18 16:41 09/11/18 16:41 09/11/18 16:41 09/11/18 16:41 09/11/18 22:56 Intake and Output: 09/12/18 09/12/18 06:59 18:59 Intake Total 2520 Output Total 0 Balance 2520 - Medications Medications: Current Medications Acetaminophen (Tylenol 325mg Tab) 650 mg PO Q6 PRN PRN Reason: Fever >100.4 F or mild pain Enoxaparin Sodium (Lovenox) 40 mg SC DAILY BOYD; Protocol Piperacillin Sod/Tazobactam (Sod 3.375 gm/ Sodium Chloride) 100 mls @ 100 mls/hr IVPB Q6H BOYD; Protocol Ondansetron HCl (Zofran Inj) 4 mg IVP Q6 PRN PRN Reason: Nausea/Vomiting Last Admin: 09/10/18 22:59 Dose: 4 mg Oxycodone HCl (Oxycodone Immediate Release Tab) 5 mg PO Q6 PRN PRN Reason: Pain, severe (8-10) Tramadol HCl (Ultram) 50 mg PO Q4 PRN PRN Reason: Pain, moderate (4-7) Last Admin: 09/12/18 06:22 Dose: 50 mg - Labs Labs: 09/12/18 07:00 09/12/18 07:00 PT 12.2 Seconds (9.8-13.1) 09/10/18 17:00 INR 1.1 09/10/18 17:00 APTT 37.1 Seconds (25.6-37.1) 09/10/18 17:00 - Constitutional Appears: Non-toxic, No Acute Distress - Head Exam Head Exam: ATRAUMATIC, NORMAL INSPECTION, NORMOCEPHALIC - Eye Exam Eye Exam: EOMI, Normal appearance - ENT Exam ENT Exam: Mucous Membranes Moist, Normal Exam - Neck Exam Neck Exam: Full ROM, Normal Inspection - Respiratory Exam Respiratory Exam: NORMAL BREATHING PATTERN - Cardiovascular Exam Cardiovascular Exam: REGULAR RHYTHM, +S1, +S2 - GI/Abdominal Exam GI & Abdominal Exam: Soft, Tenderness (mild, over surgical incision sites). abs ent: Distended, Firm, Guarding, Rigid Additional comments: Surgical incision sites x [address]- some ecchymoses surrounding incisions - Extremities Exam Extremities Exam: Normal Inspection - Neurological Exam Neurological Exam: Alert, Awake, CN II-XII Intact, Oriented x3 - Psychiatric Exam Psychiatric exam: Normal Affect, Normal Mood - Skin Skin Exam: Dry, Intact, Normal Color, Warm Additional comments: See ab exam for skin findings Assessment and Plan - Assessment and Plan (Free Text) Assessment: 52F POD#1 s/p lap luis with gangrenous gallbladder Plan: Ok for regular diet pain control Encourage IS use Ambulate Pt cleared for d/c home from surgical standpoint Pt to follow up with Dr. Tesfaye in the office in 1-[address] Brien Manriquez, PGY-2
[2018-09-12] MEDS ORDERED: Benzocaine/Menthol (Cepacol) Lozenge PO PRN (08:25)
[2018-09-12] MEDS ORDERED: Enoxaparin 40 mg Syringe SC SCH (09:00)
[2018-09-12 09:09] VITALS: BP 116/64; PULSE 69; RESP 18; TEMP 98.9
--- NOTE | 2018-09-12 10:09 | CP.PCM.DIS ---
Provider - Provider Date of Admission: 09/10/18 22:14 Attending physician: Daniel Heard MD Consults: 09/10/18 22:17 Surgical [General Surgery Consult] Stat Comment: Consulting Provider: Margaux Tesfaye Consulting Physician: Margaux Tesfaye Reason for Consult: acute cholecystitis Time Spent in preparation of Discharge (in minutes): 30 Diagnosis - Discharge Diagnosis (1) Hypertension Status: Acute (2) Cholecystitis Status: Acute (3) Cholelithiasis Status: Acute Hospital Course - Lab Results Lab Results: Micro Results 09/10/18 22:39 Blood Blood Culture - Preliminary NO GROWTH AFTER 24 HOURS 09/10/18 22:30 Blood Blood Culture - Preliminary NO GROWTH AFTER 24 HOURS Most Recent Lab Values WBC 11.2 K/uL (4.8-10.8) H 09/12/18 07:00 RBC 3.81 Mil/uL (3.80-5.20) 09/12/18 07:00 Hgb 11.4 g/dL (12.0-16.0) L 09/12/18 07:00 Hct 35.1 % (34.0-47.0) 09/12/18 07:00 MCV 92.3 fl (81.0-99.0) 09/12/18 07:00 MCH 30.0 pg (27.0-31.0) 09/12/18 07:00 MCHC 32.5 g/dL (33.0-37.0) L 09/12/18 07:00 RDW 13.8 % (11.5-14.5) 09/12/18 07:00 Plt Count 154 K/uL (130-400) 09/12/18 07:00 MPV 8.2 fl (7.2-11.7) 09/12/18 07:00 Neut % (Auto) 88.2 % (50.0-75.0) H 09/12/18 07:00 Lymph % (Auto) 5.8 % (20.0-40.0) L 09/12/18 07:00 Bacon % (Auto) 5.9 % (0.0-10.0) 09/12/18 07:00 Eos % (Auto) 0.0 % (0.0-4.0) 09/12/18 07:00 Baso % (Auto) 0.1 % (0.0-2.0) 09/12/18 07:00 Neut # (Auto) 9.9 K/uL (1.8-7.0) H 09/12/18 07:00 Lymph # (Auto) 0.7 K/uL (1.0-4.3) L 09/12/18 07:00 Bacon # (Auto) 0.7 K/uL (0.0-0.8) 09/12/18 07:00 Eos # (Auto) 0.0 K/uL (0.0-0.7) 09/12/18 07:00 Baso # (Auto) 0.0 K/uL (0.0-0.2) 09/12/18 07:00 Neutrophils % (Manual) 76 % (42-75) H 09/10/18 17:00 Band Neutrophils % 3 % (0-2) H 09/10/18 17:00 Lymphocytes % (Manual) 13 % (20-50) L 09/10/18 17:00 Monocytes % (Manual) 8 % (0-10) 09/10/18 17:00 Platelet Estimate Normal (NORMAL) 09/10/18 17:00 Hypochromasia (manual) Slight 09/10/18 17:00 Anisocytosis (manual) Slight 09/10/18 17:00 PT 12.2 Seconds (9.8-13.1) 09/10/18 17:00 INR 1.1 09/10/18 17:00 APTT 37.1 Seconds (25.6-37.1) 09/10/18 17:00 pO2 24 mm/Hg (30-55) L 09/10/18 17:55 VBG pH 7.43 (7.32-7.43) 09/10/18 17:55 VBG pCO2 46 mmHg (40-60) 09/10/18 17:55 VBG HCO3 27.6 mmol/L 09/10/18 17:55 VBG Total CO2 31.9 mmol/L (22-28) H 09/10/18 17:55 VBG O2 Sat (Calc) 52.3 % (40-65) 09/10/18 17:55 VBG Base Excess 5.3 mmol/L (0.0-2.0) H 09/10/18 17:55 VBG Potassium 3.4 mmol/L (3.6-5.2) L 09/10/18 17:55 Sodium 135.0 mmol/L (132-148) 09/10/18 17:55 Chloride 99.0 mmol/L (98-107) 09/10/18 17:55 Glucose 102 mg/dL (65-105) 09/10/18 17:55 Lactate 1.2 mmol/L (0.7-2.1) 09/10/18 17:55 FiO2 21.0 % 09/10/18 17:55 Sodium 138 mmol/l (132-148) 09/12/18 07:00 Potassium 3.4 MMOL/L (3.6-5.0) L 09/12/18 07:00 Chloride 101 mmol/L (98-107) 09/12/18 07:00 Carbon Dioxide 28 mmol/L (22-30) 09/12/18 07:00 Anion Gap 12 (10-20) 09/12/18 07:00 BUN 13 mg/dl (7-17) 09/12/18 07:00 Creatinine 0.8 mg/dl (0.7-1.2) 09/12/18 07:00 Est GFR ( Amer) > 60 09/12/18 07:00 Est GFR (Non-Af Amer) > 60 09/12/18 07:00 Random Glucose 86 mg/dL (65-105) 09/12/18 07:00 Lactic Acid 1.1 mmol/L (0.7-2.1) 09/10/18 22:50 Calcium 8.3 mg/dL (8.4-10.2) L 09/12/18 07:00 Phosphorus 1.7 mg/dl (2.5-4.5) L 09/12/18 07:00 Magnesium 2.2 MG/DL (1.6-2.3) 09/12/18 07:00 Total Bilirubin 0.9 mg/dl (0.2-1.3) 09/12/18 07:00 AST 114 U/L (14-36) H D 09/12/18 07:00 ALT 96 U/L (9-52) H D 09/12/18 07:00 Alkaline Phosphatase 97 U/L (38-126) 09/12/18 07:00 Troponin I < 0.0120 ng/mL (0.00-0.120) 09/10/18 17:00 Total Protein 6.8 G/DL (6.3-8.2) 09/12/18 07:00 Albumin 3.6 g/dL (3.5-5.0) 09/12/18 07:00 Globulin 3.3 gm/dL (2.2-3.9) 09/12/18 07:00 Albumin/Globulin Ratio 1.1 (1.0-2.1) 09/12/18 07:00 Lipase 56 U/L (23-300) 09/10/18 22:50 Venous Blood Potassium 3.4 mmol/L (3.6-5.2) L 09/10/18 17:55 Urine Color Yellow (YELLOW) 09/11/18 11:40 Urine Clarity Hazy (Clear) 09/11/18 11:40 Urine pH 6.5 (5.0-8.0) 09/11/18 11:40 Ur Specific [facility] >= 1.030 (1.003-1.030) 09/11/18 11:40 Urine Protein >=300 mg/dL (NEGATIVE) 09/11/18 11:40 Urine Glucose (UA) 100 mg/dL (NEGATIVE) 09/11/18 11:40 Urine Ketones 40 mg/dL (NEGATIVE) 09/11/18 11:40 Urine Blood Trace-intact (NEGATIVE) 09/11/18 11:40 Urine Nitrate Positive (NEGATIVE) H 09/11/18 11:40 Urine Bilirubin Small (NEGATIVE) 09/11/18 11:40 Urine Urobilinogen 2.0 mg/dL (0.2-1.0) H 09/11/18 11:40 Ur Leukocyte Esterase Negative Zayra/uL (Negative) 09/11/18 11:40 Urine RBC (Auto) 5 /hpf (0-3) H 09/11/18 11:40 Urine Microscopic WBC 3 /hpf (0-5) 09/11/18 11:40 Ur Squamous Epith Cells 70 /hpf (0-5) H 09/11/18 11:40 Urine Bacteria Many (<OCC) H 09/11/18 11:40 Blood Type A POSITIVE 09/11/18 05:26 Blood Type Confirm A POSITIVE 09/10/18 17:20 Antibody Screen Negative 09/11/18 05:26 BBK History Checked No verified bt 09/11/18 05:26 - Hospital Course Hospital Course: 52 YR OLD FEMALE ADMITTED WITH ACUTE CHOLECYSTITIS AND CHOLELITHIASIS.SHE UNDERWENT CHOLECYSTECTOMY FOR GANGRENOUS GALLBLADDER AND WILL BE DISCHARGED TODAY ONCE CLEARED BY SURGERY. Discharge Exam - Head Exam Head Exam: ATRAUMATIC, NORMAL INSPECTION, NORMOCEPHALIC - Eye Exam Eye Exam: EOMI, Normal appearance, PERRL Pupil Exam: NORMAL ACCOMODATION, PERRL - GI/Abdominal Exam GI & Abdominal Exam: Normal Bowel Sounds, Tenderness - Rectal Exam Rectal Exam: NORMAL INSPECTION - Neurological Exam Neurological exam: Alert, CN II-XII Intact, Normal Gait, Oriented x3, Reflexes Normal - Psychiatric Exam Psychiatric exam: Normal Affect, Normal Mood - Skin Skin Exam: Dry, Intact, Normal Color, Warm Discharge Plan - Follow Up Plan Condition: STABLE Disposition: HOME/ ROUTINE Instructions: Cholecystectomy, Laparoscopic Surgery Additional Instructions: Please call Dr. Tesfaye's office for a follow up appointment in the next week or 2 Ok to shower- do not remove the surgical glue, it will fall off on it's own. Wash incisions gently with soap and water. No heavy lifting for 4-6 weeks Ok to resume normal diet- avoid constipation You may take Tylenol as needed for pain. Referrals: Margaux Tesfaye MD [Staff Provider] -
[2018-09-12] MEDS ORDERED: Piperacillin/Tazobact 3.375 GM in Sodium Chloride 0.9% 100 ML IVPB SCH (13:00)
[2018-09-13 12:17] VITALS: O2SAT 98
== END 2018-09-12 13:50 | disposition home or self-care (01) | DRG 419 ==
LOC: H.ER 15:08 → H.ERHOLD 22:14 → H.PEDS 23:38
PROVIDERS: ADMIT Internal Medicine Pulmonary Disease; ATTEND Internal Medicine Pulmonary Disease
PROC: 0FT44ZZ Resection of Gallbladder, Percutaneous Endoscopic Approach (ICD-10-PCS; principal; 2018-09-11 11:00)
DX: K80.00 Calculus of gallbladder with acute cholecystitis without obstruction (principal); K82.A1 Gangrene of gallbladder in cholecystitis; K21.9 Gastro-esophageal reflux disease without esophagitis; I10 Essential (primary) hypertension; J45.909 Unspecified asthma, uncomplicated; Z79.82 Long term (current) use of aspirin